=== PATIENT | female | born 1985 | race Caucasian/White ===

== ENCOUNTER 2016-10-11 22:21 | Emergency (ER) | payer OTHER ==
[~2016-10-11] VITALS: Ht 167.6 cm; Wt 80.0 kg
[2016-10-11 22:23] VITALS: Ht 167.6 cm; Wt 80.0 kg
[2016-10-11] MEDS ORDERED: ACETAMINOPHEN 500 MG TAB PO STA (23:14)
[2016-10-12] MEDS ORDERED: CLR10 PO (00:29)
[2016-10-12] MEDS ORDERED: SERT50TA PO (00:30)
[2016-10-12] MEDS ORDERED: BCPILLS PO (00:30)
--- NOTE | 2016-10-12 00:50 | EMERGENCY ROOM VISIT NOTE ---
History First contact with patient: 23:00 Chief Complaint: FALL Stated Complaint: FELL DOWN STEPS,LF HIP/ELBOW & HEAD History of Present Illness The patient is a 30 year old female who presents to the Emergency Room for evaluation of a fall. The patient states that she slipped and fell down approximately 5 steps 4 hours ago. The patient was carrying her son. She states that she fell onto her left side. She complains of pain in her left hip , elbow and her head. She states that she "saw stars" but denies loss of consciousness. She states that she is slightly nauseous, but denies vomiting. She reports there is a small laceration to her left eyebrow. She rates her overall discomfort a 7/10. She has been able to walk since the injury. She denies any neck pain. Review of Systems A complete 6 point review of systems was reviewed with the patient with pertinent positives and negatives as per history of present illness. All else were negative. Past Medical/Surgical History Medical Problems: (1) Depression Surgical Problems: (1) History of appendectomy Social History Smoking Status: Former Smoker Alcohol Use: none Housing Status: lives with family Current/Historical Medications Scheduled Control Pills ( Control Pills), 1 TAB PO DAILY Loratadine (Claritin), 10 MG PO DAILY Sertraline (Zoloft), 50 MG PO DAILY Allergies Coded Allergies: No Known Allergies (Unverified , 10/12/16) Physical Exam Vital Signs Date Time Temp Pulse Resp B/P Pulse Ox O2 Delivery O2 Flow Rate FiO2 10/12/16 01:03 36.4 97 18 132/89 98 10/12/16 01:03 85 18 98 Room Air 10/11/16 22:23 36.4 97 18 137/94 98 Physical Exam VITALS: Vitals are noted on the nurse's note and reviewed by myself. Vital signs stable. GENERAL: This is a 30-year-old female, in no acute distress, nondiaphoretic, well-developed well-nourished. SKIN: There is a small abrasion to the left elbow. There is a 0.5 cm non- gaping laceration to the left eyebrow. There is no active bleeding. HEAD: Normocephalic atraumatic. EARS: External auditory canals clear, tympanic membranes pearly salas without erythema or effusion bilaterally. No hemotympanum. EYES: Pupils equal round and reactive to light and accommodation. Conjunctivae without injection, sclerae without icterus. Extraocular movements intact. MOUTH: Mucous membranes moist. Tongue does not deviate. NECK: Supple without nuchal rigidity. No tenderness of the cervical spine. HEART: Regular rate and rhythm without murmurs gallops or rubs. LUNGS: Clear to auscultation bilaterally without wheezes, rales or rhonchi. MUSCULOSKELETAL: There is vague tenderness to palpation of the left hip. There is tenderness to palpation of the left olecranon process. Full range of motion of all extremities. Strength 5/5 throughout. NEURO: Patient was alert and oriented to person place and time. Normal sensation to light and sharp touch. No focal neurological deficits. Medical Decision & Procedures ER Provider Diagnostic Interpretation: Elbow X-ray: No acute fracture or dislocation. Left hip x-ray: No acute fractures or dislocation. CT HEAD: No intracranial hemorrhage or mass effect. Radiologist: Jose Allen MD Medications Administered Medications (Trade) Dose Ordered Sig/Paresh Route Start Time Stop Time Status Last Admin Dose Admin Acetaminophen (Tylenol Tab) 1,000 mg NOW STAT PO 10/11/16 23:14 10/11/16 23:15 DC 10/11/16 23:21 1,000 MG Medical Decision The patient was evaluated as above. She has a small laceration which will not require repair. Elbow x-ray and hip x-ray were obtained and reviewed by myself with no acute fractures identified. CT of the head was performed and read by stat rad with no acute findings. The patient was given 1 g Tylenol for pain. Conservative measures were discussed with the patient. She verbalized understanding of my assessment and treatment plan and was discharged home in good condition. Impression Primary Impression: Fall Additional Impression: Contusion of multiple sites Departure Information Dispostion Home / Self-Care Condition GOOD Referrals No Doctor, Assigned (PCP) Patient Instructions My [facility] Additional Instructions For pain control, you can use the following [id number] medicines (if >12 yo): - Regular strength (325mg/tab) Tylenol (acetaminophen) 2 tabs every 4-6 hours as needed. Do not exceed 12 tablets in a 24 hour period. Avoid taking more than 4 grams (4000 mg) of Tylenol per day. This includes any other sources of acetaminophen you may take on a regular basis. - Regular strength (200 mg/tab) Advil (ibuprofen) 1-2 tabs every 4-6 hours as needed. Do not exceed a dose of 3200 mg per day. Proper wound care is essential for adequate wound healing and infection prevention. You can shower and clean the wound with soap and water. Do not scour over the wound, pat dry with a towel. Do not submerse the wound (i.e. bathe or dish wash) until the wound has fully healed. You can use an antibiotic ointment with a dressing over the wound for the next 3-4 days. After this time you may leave the wound dry and open to the air. Follow-up with your primary care provider as needed. Problem Qualifiers Primary Impression: Fall Encounter type: initial encounter Qualified Codes: W19.XXXA - Unspecified fall, initial encounter
[2016-10-12 01:03] VITALS: BP 132/89; PULSE 85; TEMP 36.4; O2SAT 98
--- NOTE | 2016-10-12 06:48 | DIAGNOSTIC IMAGING REPORT ---
LEFT ELBOW MIN 3 VIEWS ROUTINE CLINICAL HISTORY: Left elbow pain following injury. COMPARISON: None FINDINGS: Alignment of left elbow is anatomic. There is no acute fracture or joint effusion. IMPRESSION: No acute fracture or joint effusion of the left elbow. Electronically signed by: Chinedu Dudley M.D. 10/12/2016 6:47 AM Dictated Date/Time: 10/12/2016 6:46 AM
--- NOTE | 2016-10-12 06:49 | DIAGNOSTIC IMAGING REPORT ---
LEFT HIP UNILATERAL 2 VIEWS CLINICAL HISTORY: Left hip pain following injury. COMPARISON: None FINDINGS: Alignment of the left hip is anatomic. There is no acute fracture. Joint space is preserved. There is minimal osteophytosis. IMPRESSION: No acute fracture or dislocation of the left hip. Electronically signed by: Chinedu Dudley M.D. 10/12/2016 6:47 AM Dictated Date/Time: 10/12/2016 6:47 AM
--- NOTE | 2016-10-12 07:13 | DIAGNOSTIC IMAGING REPORT ---
CT SCAN OF THE BRAIN WITHOUT IV CONTRAST CLINICAL HISTORY: Fall. COMPARISON STUDY: No priors. TECHNIQUE: Unenhanced axial CT scan of the brain is performed from the vertex to the skull base. Automated dose control exposure was utilized. CT DOSE: 537.48 mGy.cm FINDINGS: Brain parenchyma: The brain parenchyma is normal in appearance. There is no hemorrhage, mass effect, or evidence of acute territorial ischemia by CT criteria. Keita-white matter is preserved. No extra-axial fluid collection is seen. Ventricles, sulci, cisterns: Normal in configuration. Intracranial vasculature: The visualized intracranial vasculature at the skull base is normal in appearance. Calvarium: There is no depressed calvarial fracture. Sinuses and mastoids: The visualized paranasal sinuses are clear. The mastoid air cells are well pneumatized. Orbits: The bony orbits are grossly intact. IMPRESSION: No acute intracranial abnormality. Electronically signed by: Chong Lewis M.D. 10/12/2016 7:10 AM Dictated Date/Time: 10/12/2016 7:09 AM
[2017-03-11] MEDS ORDERED: PRENTAB26 PO (15:53)
[2017-03-11] MEDS ORDERED: SERT50TA PO (15:53)
[2017-03-13] MEDS ORDERED: MTR600X PO (13:11)
== END 2016-10-12 01:06 | disposition home or self-care (01) ==
LOC: C.EDB 22:22
DX: S01.112A Laceration without foreign body of left eyelid and periocular area, initial encounter (principal); S50.312A Abrasion of left elbow, initial encounter; T14.8 Other injury of unspecified body region; W10.8XXA Fall (on) (from) other stairs and steps, initial encounter; F32.9 Major depressive disorder, single episode, unspecified; Z90.49 Acquired absence of other specified parts of digestive tract; Z87.891 Personal history of nicotine dependence; Z79.899 Other long term (current) drug therapy

== ENCOUNTER 2017-03-10 15:51 | Emergency (ER) | payer OTHER ==
[~2017-03-10] VITALS: Ht 167.6 cm; Wt 79.9 kg
[~2017-03-10 15:51] MED LIST: BCPILLS PO; CLR10 PO; SERT50TA PO
[2017-03-10 15:54] VITALS: TEMP 36.7; Ht 167.6 cm; Wt 79.9 kg
[2017-03-10] MEDS ORDERED: SODIUM CHLORIDE 0.9% 1000ML 1,000 ML IV STA (16:08)
--- NOTE | 2017-03-10 16:20 | EMERGENCY ROOM VISIT NOTE ---
History First contact with patient: 15:57 Chief Complaint: ED VAG BLEEDING Stated Complaint: CRAMPING,SOME VAG BLEEDING History of Present Illness The patient is a 31 year old female who presents to the Emergency Room with complaints of vaginal bleeding. The patient states that she is approximately 9 weeks . She has been seeing a local Center and [facility] and has been told that she is going to have a miscarriage and may need a D& C. She was told to come here if she develops any bleeding. She states that the bleeding started approximately 4 hours ago. She laid down and the bleeding has now stopped. She states she noticed a small amount of blood on the toilet paper when wiping. She reports she has had 6 previous pregnancies, 5 of which went to term and one which ended in a miscarriage. She reports some abdominal cramping and rates her discomfort an 8/10. She states this feels like labor pains. She denies any urinary symptoms, nausea or vomiting. Review of Systems A complete 10 point review of systems was reviewed with the patient with pertinent positives and negatives as per history of present illness. All else were negative. Past Medical/Surgical History Medical Problems: (1) Depression Surgical Problems: (1) History of appendectomy Social History Smoking Status: Former Smoker Alcohol Use: none Housing Status: lives with family Current/Historical Medications No Active Prescriptions or Reported Meds Physical Exam Vital Signs Date Time Temp Pulse Resp B/P (MAP) Pulse Ox O2 Delivery O2 Flow Rate FiO2 03/10/17 17:42 90 16 126/75 99 Room Air 03/10/17 15:54 36.7 113 18 124/82 99 Room Air Physical Exam VITALS: Vitals are noted on the nurse's note and reviewed by myself. Vital signs stable. GENERAL: This is a 31-year-old female, in no acute distress, nondiaphoretic, well-developed well-nourished. HEART: Regular rate and rhythm without murmurs gallops or rubs. LUNGS: Clear to auscultation bilaterally without wheezes, rales or rhonchi. ABDOMEN: Positive bowel sounds x 4. Soft, mild tenderness of the lower abdomen. No guarding or rebound tenderness. NEURO: Patient was alert and oriented to person place and time. Medical Decision & Procedures ER Provider Diagnostic Interpretation: LIMITED (US) HISTORY: 31 years-old Female approx 9 wks , bleeding acute abdominal pain and vaginal bleeding with . COMPARISON: None available TECHNIQUE: Multiple real-time sonographic images of the deep pelvic structures were obtained transabdominally and transvaginally assessing grayscale appearance, color and spectral flow. FINDINGS: TRANSABDOMINAL: Uterus measures 9.3 x 5.3 x 7.2 cm. There is a small fluid collection within the endometrium, 1.2 cm suggesting gestational sac which would correlate with estimated gestational age of 5 weeks and 2 days. Right ovary measures 3.4 x 1.2 x 2.4 cm with arterial inflow documented. Left ovary measures 3.6 x 1.7 x 2.9 cm with arterial inflow documented. TRANSVAGINAL: Patient was unable to void. Uterus measures 9.5 x 5.1 x 7.0 cm and is anteflexed. There is moderate amount of heterogeneity within the endometrium surrounding the gestational sac, suspicious for subchorionic hematoma without well delineated margins measuring approximately 2.3 x 1.1 x 2.5 cm. Compressed fluid collection within the endometrium suggesting gestational sac measures up to 1.4 cm which would correlate with estimated gestational age of 5 weeks and 4 days. No pole or no plaque identified. Left ovary measures 3.2 x 2.0 x 3.3 cm with arterial inflow and venous outflow documented. Corpus luteum on the left measures 2.4 x 1.9 x 1.5 cm. No significant free pelvic fluid. IMPRESSION: 1. Intrauterine fluid collection suggesting a gestational sac is noted without yolk sac or pole. Additionally, there is marked heterogeneity of the surrounding endometrial tissues suggesting blood products, possibly with subchronic hematoma measuring up to 2.5 cm. These findings suggest in progress or retained products of conception with recent spontaneous . Close follow-up with patient history and quantitative beta hCG analysis is needed. 2. Left corpus luteum, 2.4 cm. No evidence of ovarian torsion. Laboratory Results 03/10/17 16:25 Red Blood Count 4.79, Mean Corpuscular Volume 85.4, Mean Corpuscular Hemoglobin 28.4, Mean Corpuscular Hemoglobin Concent 33.3, Mean Platelet Volume 11.0, Neutrophils (%) (Auto) 62.5, Lymphocytes (%) (Auto) 27.3, Monocytes (%) (Auto) 7.2, Eosinophils (%) (Auto) 2.1, Basophils (%) (Auto) 0.5, Neutrophils # (Auto) 8.02, Lymphocytes # (Auto) 3.51, Monocytes # (Auto) 0.92, Eosinophils # (Auto) 0.27, Basophils # (Auto) 0.07 03/10/17 16:25 Test 03/10/17 16:25 03/10/17 16:35 White Blood Count 12.84 K/uL (4.8-10.8) Red Blood Count 4.79 M/uL (4.2-5.4) Hemoglobin 13.6 g/dL (12.0-16.0) Hematocrit 40.9 % (37-47) Mean Corpuscular Volume 85.4 fL (80-100) Mean Corpuscular Hemoglobin 28.4 pg (25-34) Mean Corpuscular Hemoglobin Concent 33.3 g/dl (32-36) Platelet Count 350 K/uL (130-400) Mean Platelet Volume 11.0 fL (7.4-10.4) Neutrophils (%) (Auto) 62.5 % Lymphocytes (%) (Auto) 27.3 % Monocytes (%) (Auto) 7.2 % Eosinophils (%) (Auto) 2.1 % Basophils (%) (Auto) 0.5 % Neutrophils # (Auto) 8.02 K/uL (1.4-6.5) Lymphocytes # (Auto) 3.51 K/uL (1.2-3.4) Monocytes # (Auto) 0.92 K/uL (0.11-0.59) Eosinophils # (Auto) 0.27 K/uL (0-0.5) Basophils # (Auto) 0.07 K/uL (0-0.2) RDW Standard Deviation 41.0 fL (36.4-46.3) RDW Coefficient of Variation 13.1 % (11.5-14.5) Immature Granulocyte % (Auto) 0.4 % Immature Granulocyte # (Auto) 0.05 K/uL (0.00-0.02) Anion Gap 10.0 mmol/L (3-11) Est Creatinine Clear Calc Drug Dose 153.8 ml/min Estimated GFR () 144.2 Estimated GFR (Non- 124.4 BUN/Creatinine Ratio 10.4 (10-20) Calcium Level 9.2 mg/dl (8.5-10.1) Total Bilirubin 0.3 mg/dl (0.2-1) Aspartate Amino Transf (AST/SGOT) U/L (15-37) Alanine Aminotransferase (ALT/SGPT) 20 U/L (12-78) Alkaline Phosphatase 75 U/L (45-117) Total Protein 8.1 gm/dl (6.4-8.2) Albumin 3.7 gm/dl (3.4-5.0) Globulin 4.4 gm/dl (2.5-4.0) Albumin/Globulin Ratio 0.8 (0.9-2) Human Chorionic Gonadotropin, Quant 7674 mIU/mL Urine Color YELLOW Urine Appearance CLEAR (CLEAR) Urine pH 6.5 (4.5-7.5) Urine Specific [place] 1.017 (1.000-1.030) Urine Protein NEG (NEG) Urine Glucose (UA) NEG (NEG) Urine Ketones NEG (NEG) Urine Occult Blood NEG (NEG) Urine Nitrite NEG (NEG) Urine Bilirubin NEG (NEG) Urine Urobilinogen NEG (NEG) Urine Leukocyte Esterase TRACE (NEG) Urine WBC (Auto) 1-5 /hpf (0-5) Urine RBC (Auto) 0-4 /hpf (0-4) Urine Hyaline Casts (Auto) 0 /lpf (0-5) Urine Epithelial Cells (Auto) >30 /lpf (0-5) Urine Bacteria (Auto) NEG (NEG) Medications Administered Medications (Trade) Dose Ordered Sig/Paresh Route Start Time Stop Time Status Last Admin Dose Admin Sodium Chloride 1,000 ml @ 999 mls/hr Q1H1M STAT IV 03/10/17 16:08 03/10/17 17:08 DC 03/10/17 16:49 999 MLS/HR ED Course The patient was evaluated as above. Labs were drawn and IV access was obtained. Patient was medicated with 1 L normal saline solution. Pelvic ultrasound was performed and read by radiology as above. Case was discussed with Dr. Sanchez of [facility] NEUROLOGIST. Their office will call the patient to schedule a follow-up appointment. Discharge instructions were reviewed with the patient. The patient verbalized understanding of my assessment and treatment plan and was discharged home in good condition. Medical Decision Differential diagnosis includes spontaneous , missed , threatened , among others. The patient is a 31-year-old female who presents today complaining of vaginal bleeding and abdominal cramping. Records from [facility] NEUROLOGIST were obtained by case management. An ultrasound was performed 03/05/17 which revealed an irregular gestational sac without pole, cardiac activity, or yolk sac. Repeat ultrasound was performed today and showed similar findings as well as findings consistent with a spontaneous in process. Beta hCG was found to be 7674. There is a mild leukocytosis. Labs are otherwise unremarkable. Workup seems to be consistent with a spontaneous in process. Blood type is O+ and the patient will not require RhoGAM. Case was discussed with Dr. Sanchez at [facility] NEUROLOGIST, who will schedule the patient for follow-up within the next 2 days in the office. This was discussed with the patient. Conservative measures and anticipatory guidance were discussed. She was advised to return here if she has heavy vaginal bleeding or any other new/ concerning symptoms. Based on the patient's presentation and work up, I feel the patient is stable for outpatient treatment. The patient was educated to return to the emergency department for any worsening of their current condition or new/concerning symptoms. She will follow up with NEUROLOGIST. Medication Reconcilliation Current Medication List: was personally reviewed by tn Blood Pressure Screening Patient's blood pressure: Normal blood pressure Impression Primary Impression: Spontaneous Departure Information Dispostion Home / Self-Care Condition GOOD Prescriptions No Active Prescriptions or Reported Meds Referrals No Doctor, Assigned (PCP) Canan. Arellano MD Patient Instructions My [facility] Additional Instructions [facility] NEUROLOGIST will call you to schedule a follow-up appointment. For pain control, you can use the following [id number] medicines (if >12 yo): - Regular strength (325mg/tab) Tylenol (acetaminophen) 2 tabs every 4-6 hours as needed. Do not exceed 12 tablets in a 24 hour period. Avoid taking more than 4 grams (4000 mg) of Tylenol per day. This includes any other sources of acetaminophen you may take on a regular basis. - Regular strength (200 mg/tab) Advil (ibuprofen) 1-2 tabs every 4-6 hours as needed. Do not exceed a dose of 3200 mg per day. Rest and drink plenty of fluids. Return to the emergency department with heavy vaginal bleeding, increased pain, fevers or any other new/concerning symptoms.
[2017-03-10 16:50] LABS: BASO % 0.5 %; BASO ABS # 0.07 K/uL (0-0.2); COMPLETE YES; EOS % 2.1 %; HEMATOCRIT 40.9 % (37-47); IG% 0.4 %; LYMPH % 27.3 %; LYMPH ABS # 3.51 K/uL (1.2-3.4); MEAN CELL VOLUME 85.4 fL (80-100); MEAN CORPUSCULAR HEMOGLOBIN 28.4 pg (25-34); MEAN CORPUSCULAR HGB CONC 33.3 g/dl (32-36); MONO % 7.2 %; NEUT % 62.5 %; PLATELET COUNT 350 K/uL (130-400); RED BLOOD COUNT 4.79 M/uL (4.2-5.4); WHITE BLOOD COUNT 12.84 K/uL (4.8-10.8)
[2017-03-10 16:53] LABS: URINE APPEARANCE CLEAR (CLEAR); URINE BILIRUBIN NEG (NEG); URINE COLOR YELLOW; URINE EPITHELIAL CELL AUTO >30 /lpf (0-5); URINE NITRITE NEG (NEG); URINE PH 6.5 (4.5-7.5); URINE SPECIFIC GRAVITY 1.017 (1.000-1.030); UROBILINOGEN NEG (NEG); ZZUR CULT IF INDIC CLEAN CATCH NO
[2017-03-10 17:01] LABS: MANUAL MICROSCOPIC REQUIRED? NO; REVIEW REQ? NO
[2017-03-10 17:28] LABS: ALB/GLOB RATIO 0.8 (0.9-2); ALKALINE PHOSPHATASE 75 U/L (45-117); ALT/SGPT 20 U/L (12-78); BLOOD UREA NITROGEN 6 mg/dl (7-18); BUN/CREATININE RATIO 10.4 (10-20); CALCIUM 9.2 mg/dl (8.5-10.1); CARBON DIOXIDE 22 mmol/L (21-32); CHLORIDE 105 mmol/L (98-107); CREATININE 0.57 mg/dl (0.60-1.20); GLUCOSE 87 mg/dl (70-99); SODIUM 137 mmol/L (136-145)
--- NOTE | 2017-03-10 18:15 | DIAGNOSTIC IMAGING REPORT ---
LIMITED (US) HISTORY: 31 years-old Female approx 9 wks , bleeding acute abdominal pain and vaginal bleeding with . COMPARISON: None available TECHNIQUE: Multiple real-time sonographic images of the deep pelvic structures were obtained transabdominally and transvaginally assessing grayscale appearance, color and spectral flow. FINDINGS: TRANSABDOMINAL: Uterus measures 9.3 x 5.3 x 7.2 cm. There is a small fluid collection within the endometrium, 1.2 cm suggesting gestational sac which would correlate with estimated gestational age of 5 weeks and 2 days. Right ovary measures 3.4 x 1.2 x 2.4 cm with arterial inflow documented. Left ovary measures 3.6 x 1.7 x 2.9 cm with arterial inflow documented. TRANSVAGINAL: Patient was unable to void. Uterus measures 9.5 x 5.1 x 7.0 cm and is anteflexed. There is moderate amount of heterogeneity within the endometrium surrounding the gestational sac, suspicious for subchorionic hematoma without well delineated margins measuring approximately 2.3 x 1.1 x 2.5 cm. Compressed fluid collection within the endometrium suggesting gestational sac measures up to 1.4 cm which would correlate with estimated gestational age of 5 weeks and 4 days. No pole or no plaque identified. Left ovary measures 3.2 x 2.0 x 3.3 cm with arterial inflow and venous outflow documented. Corpus luteum on the left measures 2.4 x 1.9 x 1.5 cm. No significant free pelvic fluid. IMPRESSION: 1. Intrauterine fluid collection suggesting a gestational sac is noted without yolk sac or pole. Additionally, there is marked heterogeneity of the surrounding endometrial tissues suggesting blood products, possibly with subchronic hematoma measuring up to 2.5 cm. These findings suggest in progress or retained products of conception with recent spontaneous . Close follow-up with patient history and quantitative beta hCG analysis is needed. 2. Left corpus luteum, 2.4 cm. No evidence of ovarian torsion. The above report was generated using voice recognition software. It may contain grammatical, syntax or spelling errors. Electronically signed by: Chad Clark M.D. 03/10/2017 6:14 PM Dictated Date/Time: 03/10/2017 6:06 PM
[2017-03-10 19:03] VITALS: BP 122/74; PULSE 78; O2SAT 100
[2017-03-11] MEDS ORDERED: SERT50TA PO (15:53)
[2017-03-11] MEDS ORDERED: PRENTAB26 PO (15:53)
[2017-03-13] MEDS ORDERED: MTR600X PO (13:11)
== END 2017-03-10 19:05 | disposition home or self-care (01) ==
LOC: C.EDB 15:52
DX: O03.9 Complete or unspecified spontaneous abortion without complication (principal); F32.9 Major depressive disorder, single episode, unspecified; Z87.891 Personal history of nicotine dependence

== ENCOUNTER 2017-03-13 10:22 | Day surgery (SDC) | payer OTHER ==
[2017-03-11 15:53] VITALS: Ht 167.6 cm; Wt 79.5 kg
[~2017-03-13] VITALS: Ht 167.6 cm; Wt 79.5 kg
--- NOTE | 2017-03-13 09:31 | HISTORY & PHYSICAL EXAMINATION ---
DATE OF ADMISSION: 03/13/2017 REASON FOR HISTORY OF PHYSICAL: The patient is having a D&E today in the MAIN OR. REASON FOR ADMISSION: Missed . HISTORY OF PRESENT ILLNESS: The patient is a 31-year-old female who presents today for a D&E for missed . She is a 5, para 3, presenting to the ER on Saturday with bleeding. She had an ultrasound, which revealed no viable and she was seen in the office, followed up on Saturday, was not bleeding and was scheduled for a D&C. PAST MEDICAL HISTORY: Significant for depression. 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 SOCIAL HISTORY: Denies smoking, alcohol or drug use. OBSTETRICAL HISTORY: x3. PHYSICAL EXAMINATION: HEENT: Within normal limits. LUNGS: Clear to auscultation. CARDIOVASCULAR: Regular rate and rhythm. ABDOMEN: Soft and nontender. Gravid to about 8 weeks. NEUROLOGIC: Intact. Blood type is Rh positive. ASSESSMENT: Incomplete missed . PLAN: D&E in the OR. JHOAN
[~2017-03-13 10:22] MED LIST changes: -BCPILLS PO; -CLR10 PO; +LACTATED RINGER'S 1000ML 1,000 ML IV SCH; +PRENTAB26 PO
[2017-03-13 11:19] VITALS: BP 126/85; PULSE 85; TEMP 36.6; O2SAT 99
[2017-03-13] MEDS ORDERED: SILVER NITR/POTASSIUM NITRATE 10 APPLICATOR PACK ONE (12:25)
[2017-03-13] MEDS ORDERED: ONDANSETRON INJ 2 MG/ML 2 ML VIAL IV PRN ×2 (12:30→13:15)
[2017-03-13] MEDS ORDERED: EpHEDrine SULFATE INJ 50 MG/ML AMP IV PRN (12:30)
[2017-03-13] MEDS ORDERED: ATROPINE SULFATE 0.1 MG/ML 5ML SYR IV PRN (12:30)
[2017-03-13] MEDS ORDERED: MIDAZOLAM HCL 1 MG/ML 2ML VIAL ONE (12:35)
[2017-03-13] MEDS ORDERED: PROPOFOL IV EMULSION 10 MG/ML 20 ML VIAL IV ONE ×2 (12:35→13:02)
[2017-03-13] MEDS ORDERED: FENTANYL CITRATE INJ 50 MCG/1 ML 2 ML VIAL ONE (12:35)
[2017-03-13] MEDS ORDERED: DEXAMETHASONE SOD INJ 4 MG/ML VIAL ONE (13:02)
[2017-03-13] MEDS ORDERED: OXYTOCIN INJ 10 UNITS/ML VIAL ONE (13:02)
[2017-03-13] MEDS ORDERED: KETOROLAC TROMETHAMINE 30 MG/ML VIAL ONE (13:02)
[2017-03-13] MEDS ORDERED: LIDOCAINE HCL 2% 2 ML VIAL (20MG/ML) ONE (13:02)
[2017-03-13] MEDS ORDERED: ONDANSETRON INJ 2 MG/ML 2 ML VIAL ONE (13:02)
[2017-03-13] MEDS ORDERED: SODIUM CHLORIDE 0.9% 1000ML 1,000 ML IV SCH (13:08)
--- NOTE | 2017-03-13 13:08 | [facility] Post Operative Brief Note ---
Immediate Operative Summary Operative Date Mar 13, 2017. Pre-Operative Diagnosis missed 8 weeks Post-Operative Diagnosis same Procedure(s) Performed D&E Surgeon Jalen [employer] Site Monitor Surgeon(s) none Estimated Blood Loss 25 ml. Findings products of conception Specimens products of conception Drains none Anesthesia LMA Complication(s) None Disposition Recovery Room / PACU
[2017-03-13] MEDS ORDERED: MTR600X PO (13:11)
--- NOTE | 2017-03-13 13:12 | Discharge Instructions ---
Discharge Instructions Date of Service Mar 13, 2017. Admission Reason for Admission: Missed Discharge Discharge Diagnosis / Problem: missed Discharge Goals Goal(s): Routine recovery after surgery Activity Recommendations Activity Limitations: as noted below Lifting Limitations: no more than 10 pounds Exercise/Sports Limitations: gradually increase as tolerated May Resume Sexual Activity: after follow-up appointment Shower/Bathe: no limitations Driving or Machine Use: resume 1 day after discharge . Instructions / Follow-Up Instructions / Follow-Up See HPI for pertinent positives & negatives. A total of 6 systems reviewed and were otherwise negative. Current Hospital Diet Patient's current hospital diet: Discharge Diet Recommended Diet: Regular Diet Procedures Procedures Performed: D&E Pending Studies Studies pending at discharge: no Medical Emergencies . Who to Call and When: Medical Emergencies: If at any time you feel your situation is an emergency, please call 911 immediately. . Non-Emergent Contact Non-Emergency issues call your: Primary Care Provider . . "Provider Documentation" section prepared by Daniel Rao. . VTE Core Measure Inpt VTE Proph given/why not?: Treatment not indicated
[2017-03-13] MEDS ORDERED: MoRPHine SULFATE 2 MG/ML CARP IV PRN (13:15)
[2017-03-13] MEDS ORDERED: KETOROLAC TROMETHAMINE 30 MG/ML VIAL IV. PRN (13:15)
[2017-03-13] MEDS ORDERED: OXYCODONE/ACETAMINOPHEN 5-325 TAB PO PRN (13:15)
[2017-03-13] MEDS ORDERED: IBUPROFEN 600 MG TAB PO PRN (13:15)
[2017-03-13] MEDS: FENTANYL CITRATE INJ 50 MCG/1 ML 2 ML VIAL IV PRN ×4 (13:29→13:44)
--- NOTE | 2017-03-13 13:45 | OPERATIVE REPORT ---
DATE OF ADMISSION: 03/13/2017 PREOPERATIVE DIAGNOSIS: Missed . POSTOPERATIVE DIAGNOSIS: Same. PROCEDURE: D&E. SURGEON: Dr. Rao. SLIP BOX CHANGER: None. ANESTHESIA: LMA anesthesia. DRAINS: None. COMPLICATIONS: None. ESTIMATED BLOOD LOSS: 25 mL. FINDINGS: Products of conception. CLINICAL HISTORY: The patient is a 31-year-old female who presents at approximately 8 weeks with a missed . The patient was seen, ultrasound did not reveal any evidence of a viable . She was seen in the office, consented for a D&E. The risks, benefits and alternatives to the procedure were documented at that time. DESCRIPTION OF PROCEDURE: Under satisfactory LMA anesthesia, the patient was prepped and draped in usual sterile fashion. Timeout was called. A catheter was then used to empty the bladder of 250 mL of clear urine. Exam under anesthesia revealed the uterus to be approximately 8 week size, anteverted. The cervix was noted to be partially open. The cervix sounded to 8 cm. The cervix was then dilated using Marissa dilators and then a #8 curved curette was then introduced, curetting and suctioning out products of conception. At the end of this procedure, the sharp endometrial curet was then used with the minimal tissue obtained. At the end of the procedure, no active bleeding was noted. Pitocin was started in the IV. The patient tolerated the procedure well. All remaining instruments were removed. The final sponge, needle and instrument count were found to be correct. EBL 25 mL and the patient was then placed supine on a stretcher and taken to recovery room in stable condition and she will be discharged today as an outpatient.
--- NOTE | 2017-03-13 13:56 | Anesthesiology Progress Note ---
Anesthesia Post Op Note Date & Time Mar 13, 2017 at 13:56 Vital Signs Pain Intensity: 3 Vital Signs Past 12 Hours Date Time Temp Pulse Resp B/P (MAP) Pulse Ox O2 Delivery O2 Flow Rate FiO2 03/13/17 13:50 36.7 78 18 111/71 99 Room Air 03/13/17 13:40 72 18 114/61 99 Oxymask 5 03/13/17 13:30 69 18 111/73 99 Oxymask 10 03/13/17 13:20 36.4 74 18 112/63 99 Oxymask 10 03/13/17 11:19 36.6 85 20 126/85 (99) 99 Room Air Notes Mental Status: alert / awake / arousable, participated in evaluation Pt Amnestic to Procedure: Yes Nausea / Vomiting: adequately controlled Pain: adequately controlled Airway Patency, RR, SpO2: stable & adequate BP & HR: stable & adequate Hydration State: stable & adequate Anesthetic Complications: no major complications apparent
[2017-03-13 14:05] VITALS: BP 117/63; PULSE 82; TEMP 36.8; O2SAT 97
[2017-03-13 14:35] VITALS: BP 115/63; PULSE 80; TEMP 36.8; O2SAT 99
== END 2017-03-13 15:10 | disposition home or self-care (01) ==
LOC: C.ACU 10:22
PROVIDERS: ATTEND Obstetrics & Gynecology
DX: O02.1 Missed abortion (principal); F32.9 Major depressive disorder, single episode, unspecified; Z98.890 Other specified postprocedural states